=== PATIENT | male | born 1970 | race Caucasian/White ===

== ENCOUNTER 2020-03-13 15:36 | Outpatient (CLI) | payer BC ==
--- NOTE | 2020-03-13 15:52 | RAD ---
EXAM: CHEST TWO VIEWS 03/13/2020 3:48 PM HISTORY: Cough with Covid exposure COMPARISON: None. FINDINGS: Lungs: There are patchy nodular and groundglass airspace opacities seen within the periphery of the left midlung and right upper lobe. Heart: Normal in size and contour. Pulmonary Vessels: Normal. Costophrenic Angles: Clear. Pneumothorax: None. Osseous Structures: Intact. Additional Findings: None. IMPRESSION: Patchy nodular and groundglass opacity seen within left midlung and right upper lobe suspicious for a n atypical infectious process such as Covid pneumonia. If clinically indicated follow-up CT for further evaluation may be helpful.
== END 2020-03-13 15:37 | disposition home or self-care (01) ==
LOC: MADRAD 15:36
PROVIDERS: ATTEND Family Medicine
DX: J06.9 Acute upper respiratory infection, unspecified (principal); R05 Cough; Z20.822 Contact with and (suspected) exposure to COVID-19; R91.8 Other nonspecific abnormal finding of lung field
CPT/HCPCS: 71046

== ENCOUNTER 2022-01-28 09:17 | Outpatient (CLI) | payer BC | END 2022-01-28 09:18 | disposition home or self-care (01) | LOC: MADULT 09:17 | PROVIDERS: ATTEND Family Medicine | DX: M79.89 Other specified soft tissue disorders (principal) | CPT/HCPCS: 76700; 76999 ==